=== PATIENT | male | born 1975 | race Caucasian/White ===

== ENCOUNTER 2018-08-16 21:11 | Emergency (ER) | payer SELFPAY ==
--- NOTE | 2018-08-16 21:43 | RAD ---
2 views soft tissue neck. HISTORY: Difficulty swallowing. AP and lateral views soft tissue neck is obtained. No evidence of radiopaque foreign bodies seen. Osteophytes seen anterior to the C5-6 level. IMPRESSION: No evidence of radiopaque foreign body seen.
[2018-08-16] MEDS ORDERED: Ondansetron ODT 4 MG TAB ONE (22:19)
--- NOTE | 2018-08-16 22:52 | RAD ---
2 views chest. HISTORY: Difficulty swallowing. PA and lateral views of the chest obtained. The lungs are well aerated. No evidence of active intrath oracic disease seen. No evidence of effusions, pneumonia or pneumothorax seen IMPRESSION: Unremarkable 2 views chest.
== END 2018-08-16 23:05 | disposition home or self-care (01) ==
LOC: ERS 21:11
DX: R13.10 Dysphagia, unspecified (principal); E78.5 Hyperlipidemia, unspecified; F41.9 Anxiety disorder, unspecified; F31.9 Bipolar disorder, unspecified; F20.9 Schizophrenia, unspecified; Z79.899 Other long term (current) drug therapy
CPT/HCPCS: 70360; 71046; Q0162

== ENCOUNTER → 2018-08-17 | Day surgery (SDC) | payer SELFPAY ==
[~2018-08-17] MED LIST: Fentanyl 100 MCG/2 ML VIAL ONE
--- NOTE | 2018-08-18 08:57 | CON ---
DATE OF CONSULTATION: 08/17/2018 REASON FOR CONSULTATION: Dysphagia, foreign body impaction. HISTORY OF PRESENT ILLNESS: Mr. Ozzie Joshi is a 43-year-old male who is very obese. Apparently, he was eating steak 2 nights ago and he felt the meat hung up in the esophagus. Subsequently, he was unable to eat or drink anything. When he drank liguids, they went down but came right back up. This has become worse over the last 48 hours. Apparently, he came to the ER yesterday and the evaluation was negative and was sent home. He went to [facility] ER this evening and was given IV glucagon and also given to try to make him throwup. Yesterday, per ER doctor at [facility], he had vomitus of small bits of meat piece. He made him drink water . The patient was sent here for EGD and removal of foreign body. The patient appears very comfortable. He is not in any distress. He is not short winded. He is not frothing of mouth or spitting out any saliva. The patient has had no similar episodes in the past. There is no history of odynophagia. No difficulty breathing. The patient has no relevant history. ALLERGIES: NONE. SOCIAL HISTORY: The patient lives with girlfriend. Does not smoke. Does not drink alcohol. No drug abuse. MEDICAL ILLNESSES: 1. Hyperlipidemia. 2. Anxiety, bipolar disorder, schizophrenia. 3. Obesity. PAST SURGICAL HISTORY: None. FAMILY HISTORY: Unknown. REVIEW OF SYSTEMS: A 10-point system review: CENTRAL NERVOUS SYSTEM: No headache, no TIA no seizure disorder. No syncope. HEENT: Head; no headache. No fevers. Eyes; normal vision. No diplopia. ENT, unremarkable. NECK: No stiffness or pain. RESPIRATORY: No chronic cough dyspnea. CARDIOVASCULAR: No chest pain. No palpitation, dyspnea, orthopnea, or PND. GI: As in history of present illness. : No dysuria, hematuria, or frequent urination. MUSCULOSKELETAL: Not known. NEUROENDOCRINE: Not known. PHYSICAL EXAMINATION: GENERAL: He is obese, appears very comfortable, in no distress. He is not short winded nor he is frothing of the mouth or spitting out any saliva. He is comfortably lying in bed. VITAL SIGNS: Stable. Afebrile. Pulse is 72, blood pressure 130/76. ENT: Conjunctivae clear. NECK: Supple. No adenitis or thyromegaly noted. CARDIOVASCULAR: First and second heart sounds heard. LUNGS: Clear to auscultation. ABDOMEN: Soft. Abdomen is nontender. No organomegaly or masses. Bowel sounds normal. EXTREMITIES: Reveal no edema. He has extensive tattooing of the extremities and also in the back. CLINICAL IMPRESSION: A 43-year-old male with dysphagia. The dysphagia occurred after he was eating some steak 2 nights ago. The patient had no similar episodes in the past. There is no odynophagia, no dyspnea etc. Normally one would expect the patient to be restless, spitting of saliva . He does not appear to be doing anything. I am really not sure if something is there or he has passed it down. I had a long talk with Mr. Joshi, his fiancee, and his mother. I explained about the procedure which includes EGD and sedation. Risks of the procedure including aspiration, perforation, and bleeding were explained to the patient. He fully understood the procedure and he is agreeable. He has signed the consent for the procedure. We will plan EGD as soon as possible. I will make further recommendation after EGD. Job ID: [id number]
--- NOTE | 2018-08-18 11:31 | OP ---
DATE OF PROCEDURE: 08/17/2018 OPERATIVE PROCEDURE: Esophagogastroduodenoscopy with removal of foreign body. PREOPERATIVE DIAGNOSIS: Esophageal obstruction due to meat impaction. POSTOPERATIVE DIAGNOSIS: Esophageal obstruction due to meat impaction, but he had large amount of vegetable matter and leafy vegetables in the esophagus. The volume of food was very large. DESCRIPTION OF PROCEDURE: The patient was placed on his left lateral position after he was intubated and was given sedation by Anesthesia Department. A bite block was placed. A Pentax video gastroscope under direct vision passed the upper esophageal sphincter into the midesophagus. The patient had a small fragment of meat pieces in the mid esophagus and scope was advanced in distal esophagus. He had a very large piece of meat stuck in the esophagus and also a larger volume of what appears very friable easily breakable food material, sufficient amount of vegetable matter. There is a lot of leafy vegetable what looked like lettuce. Initially, I felt it was very tight and pushed it down gently into the stomach but was not able to do so, the Cruz Net was passed and multiple passes made and several small fragments of meat pieces were removed. Every time the Cruz Net got close, pieces would break off. Multiple passes were made back and forth. Subsequently, a polypectomy snare was passed through the pyloric channel and the meat was grasped again and it was kind of broken down. Subsequently, I was able to get the entire meat piece in one attempt. Midesophagus polypectomy . Afterwards, the scope was advanced back into the esophagus. The stomach was completely free of any foreign body. However, the mucosa was markedly edematous and erythematous and is very swollen because of the food impaction for nearly 48 hours. The scope was advanced in stomach. Retroflexion failed to show any pathology. The fundus, cardia, gastric body, gastric antrum, and duodenum showed no pathology. The scope was withdrawn back into the esophagus. It was passed back and forth to make sure there is no visible food material. The lumen is open. The scope was withdrawn and tiny pieces of meat or vegetable matter were lying back, was suctioned. At the end of the procedure, the esophageal lumen was wide open and there was no foreign body left. DISCHARGE PLANNING: This is a 43-year-old male, came to the ER for dysphagia. He underwent EGD and was found to have large what appears to have a meat stuck in the esophagus along with some vegetable matter, leafy vegetable. The procedure was very cumbersome and very prolonged. However, I was able to take the entire meat piece with one swoop of the polypectomy snare. Before that multiple attempts made to remove this out with Cruz Net. At the end of the procedure, the esophageal lumen is open. Marked mucosal edema and swelling from the food impaction for nearly 2 days. DISCHARGE RECOMMENDATION: 1. Patient was advised to begin a mechanical soft diet for 24 hours. 2. Advised to come back to the ER for symptoms of chest pain, fever, hematemesis, or melena. Job ID: [id number]
== END ==
LOC: ERS 21:23 → SDC/OP 23:08
PROVIDERS: ATTEND Internal Medicine Gastroenterology
PROC: 0DC58ZZ Extirpation of Matter from Esophagus, Via Natural or Artificial Opening Endoscopic (ICD-10-PCS; principal; 2018-08-17)
DX: T18.128A Food in esophagus causing other injury, initial encounter (principal); E78.5 Hyperlipidemia, unspecified; F20.9 Schizophrenia, unspecified; F31.9 Bipolar disorder, unspecified; F41.9 Anxiety disorder, unspecified; E66.9 Obesity, unspecified
CPT/HCPCS: J1610; J3010

== ENCOUNTER 2018-08-23 14:19 | Day surgery (SDC) | payer OTHER, SELFPAY ==
[~2018-08-23 14:19] MED LIST changes: -Fentanyl 100 MCG/2 ML VIAL ONE; +Lidocaine 1% PF 5 ML VIAL ONE; +PROPOFOL 200 MG/20 ML VIAL ONE; +Succinylcholine Chloride 20 MG/ML 10 ml SYRINGE FS ONE
[2018-08-23 17:58] LABS: #Eosinphils 0.1 thou/uL (0.0-0.7); #Lymphocytes 1.7 thou/uL (1.20-3.40); #Monocytes 0.5 thou/uL (0.11-0.59); %Basophils 0.3 % (0.0-1.0); %Eosinophils 1.9 % (0.0-10.0); %Lymphocytes 23.2 % (21.0-51.0); %Monocytes 7.1 % (0.0-10.0); %Neutrophils 67.5 % (42.0-75.0); Hemoglobin 14.1 g/dL (14.0-18.0); Mean Corpuscular HGB CONC 34.6 g/dL (32.0-36.0); Mean Corpuscular Volume 92.4 fL (78.0-98.0); Mean Platelet Volume 7.7 fL (7.4-10.4); Platelet Count 363 thou/uL (130-400); RBC Distribution Width 10.9 % (11.5-14.5); White Blood Cell (WBC) Count 7.3 thou/uL (4.8-10.8)
--- NOTE | 2018-08-23 18:07 | RAD ---
PORTABLE CHEST: 08/23/18 HISTORY: Chest pain. The lungs appear clear. No infiltrate. Heart and mediastinum unremarkable. IMPRESSION: No acute finding. POS: [facility]
[2018-08-23 18:20] LABS: ALT (SGPT) 91 U/L (8-55); AST (SGOT) 48 U/L (5-34); Albumin 4.6 g/dL (3.5-5.0); Alkaline Phosphatase 63 U/L (40-150); Anion Gap 15 mmol/L (10-20); BUN (Urea Nitrogen) 13 mg/dL (8.9-20.6); Bilirubin, Total 0.4 mg/dL (0.2-1.2); Calc. Creatinine Clearance 0 mL/min (70-130); Calcium 9.8 mg/dL (7.8-10.44); Carbon Dioxide 24 mmol/L (22-29); Chloride 104 mmol/L (98-107); Estimated GFR-MDRD 76; Globulin 3.4 g/dL (2.4-3.5); Glucose 122 mg/dL (70-105); Potassium 3.9 mmol/L (3.5-5.1); Sodium 139 mmol/L (136-145)
[2018-08-23] MEDS ORDERED: Fentanyl 100 MCG/2 ML VIAL ONE (21:21)
--- NOTE | 2018-08-24 01:08 | CON ---
DATE OF CONSULTATION: REASON FOR CONSULTATION: Esophageal foreign body. HISTORY OF PRESENT ILLNESS: Ozzie Joshi is a 43-year-old man with a history of obesity, hyperlipidemia, and schizophrenia. He had no prior gastrointestinal history until the past week. He was seen in the ER by Dr. Rossi 6 days ago when he presented with his first ever acute esophageal food bolus impaction. At that time, he had some steak floating in the esophagus for a couple of days. Dr. Rossi performed EGD on 08/17/2018 and this was a long and cumbersome procedure as the patient had an extensive amount of steak and also vegetable matter throughout his esophagus. Dr. Rossi documented significant edematous swelling in the esophagus, but no evidence of mass lesion and he completely cleared the esophageal lumen. The patient was not discharged on any acid suppression. He was advised to chew his food thoroughly. The patient states that he had some sore throat over the past few days since the procedure. The sore throat was finally getting better. Today, he was eating a pork chop and felt as if this lodged in the chest similar to just a few days ago. He has been unable to tolerate p.o. intake all day since this happened this morning. He has no other symptoms. There is no abdominal pain or shortness of breath. ALLERGIES: NONE. OUTPATIENT MEDICATIONS: None. PAST MEDICAL HISTORY: Hyperlipidemia, anxiety, bipolar disorder, schizophrenia, obesity. REVIEW OF SYSTEMS: Full review of systems including constitutional, head, eyes, ears, nose, throat, GI, , cardiovascular, respiratory, musculoskeletal, neurologic systems is negative except as noted in the HPI. SOCIAL HISTORY: The patient does not smoke or drink alcohol. No drug abuse. FAMILY HISTORY: Unknown. PHYSICAL EXAMINATION: GENERAL: Obese man sitting up in bed, in mild distress from esophageal foreign body sensation. SKIN: He has multiple tattoos. No jaundice. No rashes were palpable. HEENT: Eyes no scleral icterus. Extraocular movements intact. ENT; mucous membranes moist. No oral lesions. LYMPH: No submandibular or supraclavicular lymphadenopathy. Thyroid nontender to palpation. HEART: Regular rate and rhythm. LUNGS: Clear to auscultation bilaterally. ABDOMEN: Bowel sounds present. Soft and nontender to palpation throughout. EXTREMITIES: No peripheral edema. VESSELS: Radial pulses 2+ bilaterally. NEURO: Cranial nerves 2 to 12 intact bilaterally. No focal deficits. IMAGING STUDIES: Chest x-ray performed today shows no acute finding. LABORATORY STUDIES: WBC 7.3, hemoglobin 14.1, platelets 363. Sodium 139, potassium 3.9, BUN 13, creatinine 1.06, total bilirubin 0.4, alkaline phosphatase 63, AST 48, ALT 91. ASSESSMENT AND PLAN: 1. Esophageal foreign body, likely food impaction with pork chop from earlier today. 2. Recent esophageal foreign body, removed on esophagogastroduodenoscopy just 6 days ago, 08/17/2018. The patient is going to require urgent esophagogastroduodenoscopy again this evening to relieve new esophageal foreign body obstruction. I discussed with the patient that following foreign body removal I may be taking esophageal biopsies to assess for possible eosinophilic esophagitis. I do not routinely dilate the esophagus in the context of acute foreign body obstruction. However, depending on findings, may need to discharge him home on acid suppression. I anticipate he will be able to be discharged home after the procedure. The patient desires to proceed. Job ID: [id number]
--- NOTE | 2018-08-24 03:47 | OP ---
DATE OF PROCEDURE: 08/23/2018 SENIOR PAYROLL ADMINISTRATOR SURGEON: None. PROCEDURE PERFORMED: Esophagogastroduodenoscopy with biopsies. INDICATIONS: 1. Recurrent esophageal foreign body sensation. 2. Dysphagia. 3. Recent esophageal foreign body just 6 days ago, removed on EGD with Dr. Rossi. MEDICATIONS: See Anesthesia record. FINDINGS: After discussion of the risks, benefits, and alternatives of the procedure, informed consent was obtained and witnessed. Pre-endoscopic cardiopulmonary examination was satisfactory. Time-out was performed before sedation was achieved. Sedation was achieved with Anesthesia assistance in the endoscopy unit. A Pentax adult upper endoscope was prepared. The patient was endotracheally intubated for airway protection. The endoscope was advanced beyond the mouth and into the esophagus under direct visualization. The proximal and mid-esophageal mucosa appeared normal. In the distal esophagus, there was no esophageal food bolus obstruction apparent. The patient does have severe erosive esophagitis involving the distal 5 cm of the esophagus with multiple linear erosions and ulcerations including a larger ulceration just at the GE junction. There was no evidence of bleeding. The tissue in this area was edematous, but there was no obstruction. The endoscope was advanced beyond the GE junction and into the stomach. Forward and retroflexed views of the entire gastric mucosa were obtained. There was a moderate-sized chunk of pork floating in the gastric fundus, which likely represents his recent esophageal food bolus obstruction, now resolved. The remainder of the gastric mucosa appeared normal. The endoscope was passed through the pylorus and into the first and second portions of the duodenum, which also appeared normal. The endoscope was then withdrawn back to the mid-esophagus and biopsies were obtained from the mid-esophagus for histology and to rule out eosinophilic esophagitis. The upper endoscope was then completely withdrawn, and the patient allowed to recover. The patient tolerated the procedure well. There were no immediate postprocedure complications. IMPRESSION: 1. No esophageal food bolus obstruction at the time of the exam. There is a chunk of pork in the gastric fundus. 2. Severe distal erosive esophagitis with ulceration at the GE junction and mucosal edema. 3. Otherwise, normal esophagogastroduodenoscopy. RECOMMENDATIONS: 1. Chew food thoroughly. 2. Liquid diet for the next 2 days, then slowly advanced diet as tolerated. 3. Pantoprazole 40 mg by mouth twice daily. 4. Follow up pathology results on the esophageal biopsies. 5. Follow up with Dr. Rossi in the [facility] in the next few weeks. Job ID: [id number]
== END 2018-08-23 22:48 | disposition home or self-care (01) ==
LOC: ERS 14:19 → SDC/OP 20:11
PROVIDERS: ATTEND Internal Medicine
PROC: 0DB28ZX Excision of Middle Esophagus, Via Natural or Artificial Opening Endoscopic, Diagnostic (ICD-10-PCS; principal; 2018-08-23)
DX: K22.10 Ulcer of esophagus without bleeding (principal); E78.5 Hyperlipidemia, unspecified; E66.01 Morbid (severe) obesity due to excess calories; F20.9 Schizophrenia, unspecified; F31.9 Bipolar disorder, unspecified; F41.9 Anxiety disorder, unspecified; Z87.821 Personal history of retained foreign body fully removed
CPT/HCPCS: 36415; 71045; 80053; 85025; 88305; 88312; 88313; J2001; J2704; J3010

== ENCOUNTER 2018-09-21 13:49 | Day surgery (SDC) | payer OTHER ==
--- NOTE | 2018-09-21 23:39 | OP ---
DATE OF PROCEDURE: 09/21/2018 PROCEDURES PERFORMED: 1. Esophagogastroduodenoscopy. 2. Esophageal dilation with a balloon, size 15 to 18 mm. 3. Esophageal dilation with Grant dilator, 50-Sol[place] Islander dilator. PREOPERATIVE DIAGNOSES: Dysphagia, esophageal stricture, and foreign body impaction of the esophagus x2 a month ago. POSTOPERATIVE DIAGNOSES: 1. Ring-like esophageal stricture, appears fibrotic and thick. The ring does not appear to be tight. 2. Mild esophagitis. 3. Retained food material after 1 night fasting in the stomach. 4. Normal stomach, otherwise normal duodenum. DESCRIPTION OF PROCEDURE: The patient was placed on the left lateral position and the throat was anesthetized with Cetacaine spray. The patient given sedation by Anesthesia Department. A Pentax video gastroscope under direct vision was passed down the oropharynx, to the GE junction, into the stomach. The patient had erosive esophagitis by Dr. Aguirre's report a month ago. The esophagus appeared to be healing. He had a couple of areas of mucosal hyperemia and edema. At the GE junction, the patient had a thick fibrotic ring. The ring does not appear to be very tight. The scope was advanced into stomach and was found to have retained food material after overnight fasting. The gastric body, gastric antrum, and duodenum, no pathology. The descending duodenum, no pathology. The scope was withdrawn back and a Bard balloon size 15-18 mm was placed at the GE junction. As the ring did not appear very tight, I decided to go to stage 2. The stage 2 balloon was placed across the GE junction and kept for 2 minutes. The procedure was extremely difficult. In spite of heavy sedation and Cetacaine spray to anesthetize the throat, he continues to cough and gags and constantly moving. Although, the balloon was placed right across the strictured area, the balloon more with the gagging and coughing. This was difficult understanding the procedure. After 2 minutes, the balloon was then placed stage 3 for just only 1 minute because of the gagging and coughing. Balloon and scope were removed. I was able to pass a 50-[place] Grant dilator. This went down with mild resistance. The patient was rescoped again and mild friability at the GE junction noted indicative of successful dilation. The stomach decompressed and scope removed. DISCHARGE PLANNING: This is a 43-year-old male with esophageal stricture, recent foreign body impaction x2 in July of 2018. The EGD showed a thick fibrotic ring, but does not appear to be too tight. It was dilated to stage 2 and 3 for 2 minutes of balloon and also Grant 50-[place] Islander was passed with mild resistance. DISCHARGE RECOMMENDATION: 1. Continue pantoprazole. 2. The patient was advised to chew his food nicely and swallow with a lot of water. 3. To come back to see me in 2 weeks. had to be brought back for another EGD. The EGD has to be done under general anesthesia because of the coughing and gagging. Job ID: [id number]
--- NOTE | 2018-09-22 10:01 | HP ---
HISTORY OF PRESENT ILLNESS: This is a 43-year-old male with dysphagia with recent food impaction . The patient has had 2 episodes of food impaction in the last 1 month. He was seen by me in July of 2018 when he came to ER with food impaction. He underwent EGD and disimpaction. He came back to the ER a week later with the same symptoms. He was seen by Dr. Jerry Aguirre, and he took care of the problem. The patient difficulty to swallowing meat and bread easily. The patient comes in for EGD and dilation today. ALLERGIES: NONE. PAST MEDICAL HISTORY: 1. Hyperlipidemia. 2. Anxiety. 3. Bipolar disorder. 4. Schizophrenia. 5. Obesity. SOCIAL HISTORY: The patient does not smoke or drink alcohol. PHYSICAL EXAMINATION: GENERAL: He is obese, appears comfortable. VITAL SIGNS: Pulse is 70 and blood pressure 130/80. HEENT: Conjunctivae clear. CARDIOVASCULAR: First and second heart sounds heard. LUNGS: Clear to auscultation. ABDOMEN: Soft. No organomegaly. No tenderness. No masses. ADMITTING DIAGNOSIS: A 43-year-old male with dysphagia, recent meat impaction of the esophagus x2 a month ago. The patient comes for EGD and dilation. Job ID: [id number]
== END 2018-09-21 17:25 | disposition home or self-care (01) ==
LOC: SDC 13:49
PROVIDERS: ATTEND Internal Medicine Gastroenterology
PROC: 0D758ZZ Dilation of Esophagus, Via Natural or Artificial Opening Endoscopic (ICD-10-PCS; principal; 2018-09-21)
DX: K22.2 Esophageal obstruction (principal); K20.9 Esophagitis, unspecified; E78.5 Hyperlipidemia, unspecified; F41.9 Anxiety disorder, unspecified; F31.9 Bipolar disorder, unspecified; F20.9 Schizophrenia, unspecified; E66.9 Obesity, unspecified; Z68.38 Body mass index [BMI] 38.0-38.9, adult; Z98.890 Other specified postprocedural states